=== PATIENT | female | born 1995 | race Caucasian/White ===

== ENCOUNTER → 2021-06-27 14:13 | Outpatient (BNVA) | payer OTHER, SELFPAY | PROVIDERS: Visit Provider Nurse Practitioner | DX: Z20.822 Contact with and (suspected) exposure to COVID-19 (principal) | CPT/HCPCS: 87635 ==

== ENCOUNTER 2022-10-23 08:25 | Emergency (ER) | payer MEDICAID, SELFPAY ==
[2022-10-23 08:36] VITALS: BP 152/101; PULSE 73; RESP 13; TEMP 36.7; O2SAT 100; BMI 24.2
--- NOTE | 2022-10-23 08:47 | ECG_ITS ---
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 Measurements Intervals [place] Rate: 71 P: 53 VA: 140 QRS: 33 QRSD: 100 T: 49 QT: 380 QTc: 413 Interpretive Statements SINUS RHYTHM INCOMPLETE RIGHT BUNDLE BRANCH BLOCK [90+ ms QRS DURATION, TERMINAL R IN V1/V2, 40+ ms S IN I/aVL/V4/V5/V6] No previous ECG available for comparison Electronically Signed On 10-23-2022 14:14:31 CDT by Celsa Hermosillo M.D. [id number]
--- NOTE | 2022-10-23 08:47 | XRR_ITS ---
PROCEDURE INFORMATION: Exam: XR Chest Exam date and time: 10/23/2022 9:04 AM Age: 26 years old Clinical indication: Dyspnea TECHNIQUE: Imaging protocol: Radiologic exam of the chest. Views: 1 view. COMPARISON: No relevant prior studies available. FINDINGS: Lungs: Unremarkable. No consolidation. Pleural spaces: Unremarkable. No pleural effusion. No pneumothorax. Heart/Mediastinum: Unremarkable. No cardiomegaly. Bones/joints: Unremarkable. XR/XR chest 1V portable [id number] IMPRESSION: No acute findings.
[2022-10-23 09:09] VITALS: BP 152/100; PULSE 63; RESP 16; O2SAT 99
[2022-10-23 09:12] LABS: Basophils % 0.8 %; Eosinophils # 0.1 10^3/uL (0.0-0.8); Eosinophils % 2.1 %; Hematocrit 39.6 % (37.0-47.0); Hemoglobin 12.6 g/dL (11.5-15.3); Lymphocytes # 1.7 10^3/uL (0.8-4.8); Lymphocytes % 31.2 %; Mean Corpuscular HGB Conc 31.8 g/dL (30.0-36.0); Mean Corpuscular Hemoglobin 29.4 pg (28.0-34.0); Mean Corpuscular Volume 92.3 fl (81-99); Mean Platelet Volume 10.2 fL (7.4-10.4); Monocytes # 0.5 10^3/uL (0.2-0.9); Neutrophils # 3.02 10^3/uL (1.8-7.7); Neutrophils % 56.7 %; Nucleated Red Blood Cells % 0 %; Platelet Count 217 10^3/cmm (130-400); Red Blood Count 4.29 10^6/uL (4.1-5.3); Red Cell Distribution Width 14.2 % (12.1-15.1); White Blood Count 5.3 10^3/uL (4.0-10.0)
--- NOTE | 2022-10-23 09:16 | W.ED.SOB ---
HPI - SOB/Dyspnea General: Chief Complaint: Shortness of Breath/Dyspnea Stated Complaint: SOB Time Seen by Provider: 10/23/22 08:42 History of Present Illness: HPI Narrative: Patient presents to the ER with complaints of shortness of breath chest heaviness and throat feeling tense. This all started last night. Patient is never felt this way before. Patient denies any cardiac history. Patient is 4 months . Patient denies any fevers chills coughs colds congestion. MD elicited complaint: shortness of breath Pertinent past history: other (4 months ) Onset (ago): day(s) (Last night) Timing: constant Severity: mild Exacerbating factors: nothing Relieving factors: nothing Associated symptoms: Reports chest pain (Tightness); Deny abdominal pain, extremity pain, fever(s), nausea or vomiting Treatment prior to arrival: none Review of Systems General: Reports: 10 or more systems reviewed and unremarkable except in HPI and below Const: Denies: fever(s) or chills Eyes: Denies: change in vision or photophobia ENMT: Denies: throat pain or odynophagia Card: Reports: chest pain (Tightness) Resp: Reports: dyspnea; Denies: productive cough, non-productive cough or wheezing GI: Denies: abdominal pain, nausea or vomiting : Denies: flank pain or difficulty voiding Musc: Denies: neck pain, back pain or extremity pain Skin/Breast: Denies: rash, pruritus or erythema Physical Exam Const: COMMON NORMALS: no acute distress, average body habitus, patient oriented x3, no limitations, healthy appearing and well nourished HENMT: COMMON NORMALS: normocephalic, atraumatic, hearing grossly normal bilaterally, external ears normal, Normal external nose present and moist oral mucous membranes HEAD & SCALP: normocephalic and atraumatic NOSE: Normal external nose present EXTERNAL EAR: Yes external ears normal Eye: COMMON NORMALS: Equal, round and reactive pupils present, EOMs intact bilaterally, conjunctivae normal and no scleral icterus CONJUNCTIVA: Yes conjunctivae normal PUPIL: Yes Equal, round and reactive pupils present Neck/C-Spine: COMMON NORMALS: full ROM, no lymphadenopathy, supple, no meningeal signs, no JVD and Thyroid normal THYROID: Thyroid normal Chest: COMMONS NORMALS: normal inspection of the chest and normal palpation of entire chest wall Resp: COMMON NORMALS: normal respiratory effort, No retractions, No use of accessory muscles and clear to auscultation bilaterally AUSCULTATION: clear to auscultation bilaterally Cardio: COMMON NORMALS: no JVD, regular rate, regular rhythm, S1 normal heart sound present, S2 normal heart sound present, No gallops present (Cardio), No clicks present (Cardio), No murmurs present (Cardio) and No rub (Cardio) RATE: regular rate RHYTHM: regular rhythm HEART SOUNDS: S1 normal heart sound present and S2 normal heart sound present GI: COMMON NORMALS: Normal to inspection, nondistended, normoactive bowel sounds present, Soft to palpation, non-tender, No hepatosplenomegaly present and no masses PALPATION: Yes Soft to palpation and Yes No hepatosplenomegaly present : COMMON NORMALS: Yes no CVA tenderness BLADDER/KIDNEY EXAM: Yes no CVA tenderness Back/Pelvis: COMMON NORMALS: no CVA tenderness Neuro: COMMON NORMALS: patient oriented x3 MENINGEAL SIGNS: Yes no meningeal signs Course Vital Signs: Vital signs: Vital Signs Temperature 98.1 F 10/23/22 08:36 Pulse Rate 59 L 10/23/22 10:41 Respiratory Rate 16 10/23/22 10:41 Blood Pressure 152/101 10/23/22 10:41 Pulse Oximetry 98 10/23/22 10:41 Oxygen Delivery Me thod Room Air 10/23/22 10:41 MDM - SOB/Dyspnea Medical Decision Making Patient presents with chest tightness and shortness of breath. Patient is 4 months . Lab work physical exam was obtained which revealed benign troponins negative chest x-ray and benign lab work except for UTI. Patient will be put on antibiotics discharged with UTI and atypical chest pain and told to follow-up with her PCP in approximately 1 to 2 weeks. Differential Diagnosis Unlikely acute exacerbation of chronic obstructive airways disease, congestive heart failure, community acquired pneumonia, asthma with exacerbation or pulmonary embolism Medical Records I reviewed the patient's medical records. Lab Data I reviewed the patient's lab results. 10/23/22 09:03 10/23/22 09:03 Labs/Radiology: Radiology Impressions Chest X-Ray 10/23/22 08:47 IMPRESSION: No acute findings. Laboratory Results WBC 5.3 10^3/uL (4.0-10.0) 10/23/22 09:03 RBC 4.29 10^6/uL (4.1-5.3) 10/23/22 09:03 Hgb 12.6 g/dL (11.5-15.3) 10/23/22 09:03 Hct 39.6 % (37.0-47.0) 10/23/22 09:03 MCV 92.3 fl (81-99) 10/23/22 09:03 MCH 29.4 pg (28.0-34.0) 10/23/22 09:03 MCHC 31.8 g/dL (30.0-36.0) 10/23/22 09:03 RDW 14.2 % (12.1-15.1) 10/23/22 09:03 Plt Count 217 10^3/cmm (130-400) 10/23/22 09:03 MPV 10.2 fL (7.4-10.4) 10/23/22 09:03 Neut % (Auto) 56.7 % 10/23/22 09:03 Lymph % (Auto) 31.2 % 10/23/22 09:03 [place] % (Auto) 9.0 % 10/23/22 09:03 Eos % (Auto) 2.1 % 10/23/22 09:03 Baso % (Auto) 0.8 % 10/23/22 09:03 Neut # (Auto) 3.02 10^3/uL (1.8-7.7) 10/23/22 09:03 Lymph # (Auto) 1.7 10^3/uL (0.8-4.8) 10/23/22 09:03 [place]ock # (Auto) 0.5 10^3/uL (0.2-0.9) 10/23/22 09:03 Eos # (Auto) 0.1 10^3/uL (0.0-0.8) 10/23/22 09:03 Baso # (Auto) 0.0 10^3/uL (0.0-0.1) 10/23/22 09:03 Nucleated RBC % (auto) 0 % 10/23/22 09:03 Nucleated RBCs # 0.0 /100WBC 10/23/22 09:03 D-Dimer 0.31 ug/mIFEU (0-0.59) 10/23/22 09:03 Sodium 139 mmol/L (136-145) 10/23/22 09:03 Potassium 4.1 mmol/L (3.5-5.1) 10/23/22 09:03 Chloride 103 mmol/L (98-107) 10/23/22 09:03 Carbon Dioxide 24 mmol/L (22-29) 10/23/22 09:03 Anion Gap 16.1 (5-19) 10/23/22 09:03 BUN 10 mg/dL (6-20) 10/23/22 09:03 Creatinine 0.5 mg/dL (0.5-0.9) 10/23/22 09:03 GFR Calculation 150.3 mL/min (90-130) H 10/23/22 09:03 Glucose 85 mg/dL (65-115) 10/23/22 09:03 Calculated Osmolality 286 mOsm/kg (285-295) 10/23/22 09:03 Calcium 9.2 mg/dL (8.5-10.5) 10/23/22 09:03 Total Bilirubin 0.2 mg/dL (0.15-1.2) 10/23/22 09:03 AST 17 U/L (0-32) 10/23/22 09:03 ALT 22 U/L (0-33) 10/23/22 09:03 Alkaline Phosphatase 60 U/L (35-105) 10/23/22 09:03 Troponin T Baseline 6 ng/L (0-10) 10/23/22 09:03 Troponin T 120 Minute 6.00 ng/L (0-10) 10/23/22 11:05 Delta Troponin T 0 ABS# (0-10) 10/23/22 11:05 Total Protein 7.1 g/dL (6.6-8.7) 10/23/22 09:03 Albumin 4.3 g/dL (3.5-5.2) 10/23/22 09:03 Globulin 2.8 g/dL (1.3-4.6) 10/23/22 09:03 Urine Color Yellow (Yellow) 10/23/22 10:58 Urine Appearance Sl hazy (CLEAR) A 10/23/22 10:58 Urine pH 6 (5-7) 10/23/22 10:58 Ur Specific [place] 1.015 (1.005-1.030) 10/23/22 10:58 Urine Protein Neg (Negative) 10/23/22 10:58 Urine Glucose (UA) Norm (Normal) 10/23/22 10:58 Urine Ketones Negative (Negative) 10/23/22 10:58 Urine Blood 3+ (Negative) H 10/23/22 10:58 Urine Nitrate Negative (Negative) 10/23/22 10:58 Urine Bilirubin Neg (Negative) 10/23/22 10:58 Urine Urobilinogen Norm mg/dL (Negative) 10/23/22 10:58 Ur Leukocyte Esterase Trace (Negative) H 10/23/22 10:58 Urine RBC 0-4 /hpf (0-2) H 10/23/22 10:58 Urine WBC 0-4 /hpf (0-5) H 10/23/22 10:58 Ur Squamous Epith Cells 10-15 /hpf (0-5) H 10/23/22 10:58 Amorphous Sediment 1+ /hpf 10/23/22 10:58 Urine Bacteria Trace /hpf (NONE) 10/23/22 10:58 EKG Data EKG 1: I personally reviewed and interpreted this EKG as follows: EKG Interpretation Date: 10/23/22 EKG interpretation time: 09:12 Prior EKG tracings: not available for review Interpretation: EKG showed normal sinus rhythm with incomplete right bundle branch block, ventricular rate of 71 bpm, ND interval 140, QRS duration 100, QTc 402, no ST-T wave changes EKG 2: I personally reviewed and interpreted this EKG as follows: EKG Interpretation Date: 10/23/22 EKG interpretation time: 10:50 Prior EKG tracings: available for review Interpretation: EKG showed ventricular rate of 55 bpm, ND interval of 142, QRS 94, QTc of 399, sinus bradycardia, incomplete right bundle branch block Discharge Plan Discharge Patient Disposition: Home Clinical Impression: Atypical chest pain, Shortness of breath Urinary tract infection Qualifiers: Urinary tract infection type: acute cystitis Hematuria presence: without hematuria Qualified Code(s): N30.00 - Acute cystitis without hematuria Condition: Stable Prescriptions: New Bactrim DS 800-160 mg tablet 1 tab PO BID Qty: 14 0RF Discharge Orders: Discharge ED (Routine); Ordered 10/23/22 Ordered By: Misael Barrientos Patient Instructions: Chest Pain (ED), Shortness of Breath (ED), Urinary Tract Infection - Women Activity Restrictions/Additional Instructions: Please take your medicine as directed. Follow-up with your family practice doctor in the next 1 to 2 weeks or as needed. If your chest pain worsens or shortness of breath becomes worse please follow back up in the ER. Coding Level of Care Code ED Rotary Screen Printing Machine Operator for Keyla Kohli
[2022-10-23 09:23] LABS: D Dimer 0.31 ug/mIFEU (0-0.59)
[2022-10-23 09:26] LABS: Troponin(5th) Baseline 6 ng/L (0-10)
[2022-10-23 09:32] LABS: Alanine Aminotransferase 22 U/L (0-33); Albumin Level 4.3 g/dL (3.5-5.2); Alkaline Phosphatase 60 U/L (35-105); Anion Gap 16.1 (5-19); Aspartate Amino Transferase 17 U/L (0-32); Blood Urea Nitrogen 10 mg/dL (6-20); Calcium 9.2 mg/dL (8.5-10.5); Carbon Dioxide 24 mmol/L (22-29); Chloride 103 mmol/L (98-107); Globulin 2.8 g/dL (1.3-4.6); Glomerular Filtration Rate 150.3 mL/min (90-130); Glucose 85 mg/dL (65-115); Osmolality Calculated 286 mOsm/kg (285-295); Potassium 4.1 mmol/L (3.5-5.1); Sodium 139 mmol/L (136-145); Total Bilirubin 0.2 mg/dL (0.15-1.2); Total Protein 7.1 g/dL (6.6-8.7)
[2022-10-23 10:41] VITALS: BP 152/101; PULSE 59; RESP 16; O2SAT 98
--- NOTE | 2022-10-23 10:50 | ECG_ITS ---
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 Measurements Intervals [place] Rate: 55 P: 50 [place]: 142 QRS: 30 QRSD: 94 T: 44 QT: 409 QTc: 394 Interpretive Statements SINUS BRADYCARDIA INCOMPLETE RIGHT BUNDLE BRANCH BLOCK [90+ ms QRS DURATION, TERMINAL R IN V1/V2, 40+ ms S IN I/aVL/V4/V5/V6] Compared to ECG 10/23/2022 09:12:36 Sinus rhythm no longer present Electronically Signed On 10-23-2022 14:16:28 CDT by Celsa Hermosillo M.D. [id number]
[2022-10-23 11:12] LABS: Add Urine Culture? No; Add Urine Microscopic? YES; Amorphous Sediment Urine 1+ /hpf; Bacteria Urine TRACE /hpf; Bilirubin Urine Neg (Negative); Blood Urine 3+ (Negative); Glucose Urine UA Norm (Normal); Ketones Urine Negative (Negative); Leukocyte Esterase Urine Trace (Negative); Nitrate Urine Negative (Negative); Protein Urine Neg (Negative); RBC Urine 0-4 /hpf (0-2); Specific Gravity, Urine 1.015 (1.005-1.030); Urine Appearance SL Hazy (CLEAR); Urine Color Yellow (Yellow); Urobilinogen Urine Norm (Negative); WBC Urine 0-4 /hpf (0-5); pH Urine 6 (5-7)
[2022-10-23 11:47] LABS: Troponin 5 2HR Delta 0 ABS# (0-10)
--- NOTE | 2022-10-29 10:45 | DCPLANNER ---
dairy manager called patient due to no primary care physician - declines at this time.
== END 2022-10-23 12:21 | disposition home or self-care (01) ==
PROVIDERS: Emergency Provider Emergency Medicine
DX: R07.89 Other chest pain (principal); R06.02 Shortness of breath; N30.00 Acute cystitis without hematuria
CPT/HCPCS: 71045; 80053; 81001; 84484; 85025; 85378; 93005; 99285

== ENCOUNTER 2022-12-19 13:57 | Emergency (ER) | payer MEDICAID, SELFPAY ==
--- NOTE | 2022-12-19 13:58 | XRR_ITS ---
PROCEDURE INFORMATION: Exam: XR Right Wrist Exam date and time: 12/19/2022 2:09 PM Age: 27 years old Clinical indication: Injury or trauma; Fall; Blunt trauma (contusions or hematomas); Wrist; Right; Additional info: Pain TECHNIQUE: Imaging protocol: Radiologic exam of the right wrist. Views: 3 or more views. COMPARISON: No relevant prior studies available. FINDINGS: Bones/joints: No acute bony injury or malalignment in the right wrist. Soft tissues: No radiopaque foreign body. XR/XR wrist RT min 3V* [id number] IMPRESSION: No acute bony injury or malalignment in the right wrist.
[2022-12-19 14:24] VITALS: BP 114/70; PULSE 73; RESP 14; TEMP 36.6; O2SAT 98; BMI 27.4
--- NOTE | 2022-12-19 14:35 | W.ED.EXTPRO ---
HPI - Extremity Problem General: Chief complaint: Extremity Injury, Upper Stated complaint: RT wrist inj Time Seen by Provider: 12/19/22 14:34 Source: patient Mode of arrival: ambulatory Limitations: no limitations History of Present Illness: 27-year-old female presents to the ER today for right wrist pain x24 hours. Patient reports she slipped walking up a ramp yesterday and fell and landed on an outstretched right hand. Patient reports mild swelling. She reports pain that is persisted since yesterday. She reports pain with range of motion. Denies decreased range of motion. Patient has not taken anything for the pain at this time. Denies any prior wrist injury. Patient has been wearing a wrist brace which does seem to help some. Review of Systems General: Reports: 10 or more systems reviewed and unremarkable except in HPI and below Physical Exam Const: COMMON NORMALS: no acute distress, average body habitus, patient oriented x3, no limitations, healthy appearing, alert and well nourished Resp: COMMON NORMALS: normal respiratory effort EFFORT & INSPECTION: Yes able to speak in complete sentences Cardio: COMMON NORMALS: regular rate and regular rhythm RATE: regular rate RHYTHM: regular rhythm Extremity: NARRATIVE EXTREMITY EXAM: Patient wearing wrist brace. Normal range of motion with mild tenderness with flexion and extension of the right wrist. No obvious swelling. No deformities. Neuro: COMMON NORMALS: patient oriented x3 SENSORIUM/ORIENTATION: Yes alert Psych: COMMON NORMALS: mental status grossly normal, Normal thought process present and cooperative THOUGHT PROCESS: Normal thought process present Skin: COMMON NORMALS: no rashes or lesions noted and no wounds GENERAL SKIN EXAM: no rashes or lesions noted Course ED course: Patient presents for right wrist pain after a fall. We will go ahead and get imaging at this time. No obvious deformities noted. Patient wearing wrist brace in the ER. Vital Signs: Vital signs: Vital Signs Temperature 97.8 F 12/19/22 14:24 Pulse Rate 73 12/19/22 14:24 Respiratory Rate 14 12/19/22 14:24 Blood Pressure 114/70 12/19/22 14:24 Pulse Oximetry 98 12/19/22 14:24 Oxygen Delivery Me thod Room Air 12/19/22 14:24 MDM - Extremity (Nontraumatic) Medical Decision Making X-ray of the right wrist is negative for acute fracture. Suggested patient continue to wear the lace up wrist brace. Recommended ibuprofen or Aleve x7 to 10 days. Recommended ice 20 minutes on 20 minutes off several times daily. Rest recommended. Follow-up with PCP in 2 to 3 weeks if no improvement. Return to the ER with any new or worsening symptoms. Patient verbalized understanding and was in agreement with the treatment plan. Critical Care Time Critical Care Time: Critical Care Time: No Discharge Plan Discharge Patient Disposition: Home Clinical Impression: Sprain and strain of wrist Condition: Stable Prescriptions: No Action Bactrim DS 800-160 mg tablet 1 tab PO BID Qty: 14 0RF Discharge Orders: Discharge ED (Routine); Ordered 12/19/22 Ordered By: Charleen Barrera Discharge Diet: Usual diet Discharge Activity: Increase activity as tolerated Patient Instructions: Opioid Safety, Pain Management Activity Restrictions/Additional Instructions: Wear wrist brace as discussed. Take ibuprofen x7 to 10 days. Apply ice. Rest recommended for several days. If no improvement in 2 to 3 weeks, follow-up with PCP. Return to the ER with new or worsening symptoms. Stand Alone Forms: Work/School Release Coding Level of Care Code ED Manufacturing Software Engineer for Keyla Kohli
[2022-12-19 14:39] VITALS: RESP 16
--- NOTE | 2022-12-22 09:41 | DCPLANNER ---
Addendum entered by Margaret Davis 12/22/22 09:59: Patient called dependency case manager back - declines at this time. Original Note: manager state called patient due to no primary care physician - no answer at this time.
== END 2022-12-19 14:39 | disposition home or self-care (01) ==
PROVIDERS: Emergency Provider Physician Assistant
DX: S63.501A Unspecified sprain of right wrist, initial encounter (principal); S66.911A Strain of unspecified muscle, fascia and tendon at wrist and hand level, right hand, initial encounter; W01.0XXA Fall on same level from slipping, tripping and stumbling without subsequent striking against object, initial encounter
CPT/HCPCS: 73110; 99283

== ENCOUNTER 2023-05-07 19:57 | Emergency (ER) | payer OTHER, MEDICAID, SELFPAY ==
[2023-05-07 20:16] VITALS: BP 138/84; PULSE 71; RESP 16; TEMP 36.6; O2SAT 100; BMI 26.4
--- NOTE | 2023-05-07 21:49 | XRR_ITS ---
PROCEDURE INFORMATION: Exam: XR Chest Exam date and time: 05/07/2023 9:57 PM Age: 27 years old Clinical indication: Pain; Chest pressure; Patient HX: -sob; Cough; Ex smoker; Additional info: -sob; Cough; Ex smoker TECHNIQUE: Imaging protocol: Radiologic exam of the chest. Views: 1 view. COMPARISON: CR XR chest 1V portable [id number] 10/23/2022 9:04 AM FINDINGS: Lungs: No consolidation. Pleural spaces: No large pleural effusion. No pneumothorax. Heart/Mediastinum: Unremarkable cardiomediastinal silhouette. Bones/joints: No acute abnormality. XR/XR chest 1V portable [id number] IMPRESSION: No acute findings.
--- NOTE | 2023-05-07 21:49 | W.ED.URI ---
HPI - URI/Sore Throat General: Chief Complaint: Shortness of Breath/Dyspnea Stated Complaint: sob heavy in throat Time Seen by Provider: 05/07/23 20:09 Source: patient Mode of arrival: ambulatory Limitations: no limitations History of Present Illness: Patient is a 27-year-old female presents to ED today with a complaint of intermittent shortness of breath and feeling like she has a fullness in her throat . Patient states about 2 weeks ago her child tested positive for RSV. Patient shortly after began having nasal congestion, runny nose, and a cough so she presumed she also had RSV. She was treating symptomatically with [id number] medications which did seem to help alleviate her symptoms. She states she has not taken any of these medications in several days now. She feels like her cough is not improving. She states she intermittently feels short of breath. She does still have some postnasal drainage and feels like this as well as phlegm from her chest to get caught in her throat which contribute to the fullness sensation. She also feels like when this happens she gets anxious which may contribute to her shortness of breath. She arrives with perfectly normal vital signs. She has not been running fevers. She is not having any chest pain or palpitations. MD elicited complaint: cough and other (dyspnea) Consistency: intermittent Severity: mild Description of mucous: clear Able to tolerate fluids by mouth: Yes Exacerbating factors: nothing Relieving factors: nothing Associated symptoms: Deny abdominal pain, chills, chest pain, ear or mastoid pain, fever(s), headache(s), nasal congestion, nausea, sinus pain or vomiting Review of Systems Const: Denies: fever(s), chills, body aches, fatigue or malaise Eyes: Denies: change in vision, blurry vision, photophobia, eye discomfort or eye discharge ENMT: Reports: post nasal drip; Denies: throat pain, enlarged tonsils, odynophagia, swelling of lips/tongue, oral sores, ear or mastoid pain, ear discharge, nasal discharge, nasal congestion or sinus pain Card: Denies: chest pain Resp: Reports: dyspnea, non-productive cough and chest congestion; Denies: productive cough, wheezing, stridor, pain on inspiration or hemoptysis GI: Denies: abdominal pain, nausea or vomiting Neuro: Denies: headache(s) All/Imm: Denies: facial swelling or seasonal rhinorrhea Physical Exam Const: COMMON NORMALS: no acute distress, average body habitus, patient oriented x3, no limitations, healthy appearing, alert and well nourished HENMT: COMMON NORMALS: Normal external nose present FACE & SINUS: normal facial exam and sinuses nontender NOSE: Normal external nose present MOUTH: Normal oral and palatal mucosa present and lip normal THROAT: posterior oropharynx normal and tonsils normal Neck/C-Spine: COMMON NORMALS: no lymphadenopathy GENERAL: Yes normal visual inspection, No anterior neck swelling and No submandibular swelling Chest: COMMONS NORMALS: normal inspection of the chest Resp: COMMON NORMALS: normal respiratory effort and clear to auscultation bilaterally AUSCULTATION: clear to auscultation bilaterally Cardio: COMMON NORMALS: regular rate and regular rhythm RATE: regular rate RHYTHM: regular rhythm Neuro: COMMON NORMALS: patient oriented x3 SENSORIUM/ORIENTATION: Yes alert Course Vital Signs: Vital signs: Vital Signs Temperature 97.9 F 05/07/23 20:16 Pulse Rate 71 05/07/23 20:16 Respiratory Rate 16 05/07/23 20:16 Blood Pressure 138/84 05/07/23 20:16 Pulse Oximetry 100 05/07/23 20:16 Oxygen Delivery Me thod Room Air 05/07/23 20:16 MDM - URI/Sore Throat Medical Decision Making Patient appears in no acute distress. Her vital signs are stable. CXR is normal. Patient stable for discharge from an ED standpoint. Discussed that she can continue using [id number] therapies/decongestants as needed she did get relief from these when she was taking them previously. Discussed other homeopathic remedies for drainage/congestion including lemon/honey/elderberry syrup. Return to ED precautions given. Differential Diagnosis Likely upper respiratory infection, viral infection and bronchitis Medical Records I reviewed the patient's medical records. XR interpretation done by ED provider, pending radiology final review Discharge Plan Discharge Patient Disposition: Home Clinical Impression: Upper respiratory infection Qualifiers: URI type: unspecified viral URI Qualified Code(s): J06.9 - Acute upper respiratory infection, unspecified Condition: Stable Prescriptions: No Action Bactrim DS 800-160 mg tablet 1 tab PO BID Qty: 14 0RF Discharge Orders: Discharge ED (Routine); Ordered 05/07/23 Ordered By: Jessica Roman Patient Instructions: RSV (Respiratory Syncytial Virus) Infection (ED), Upper Respiratory Infection - Adult Coding Level of Care Code ED Bias Binding Cutter for Keyla Kohli
[2023-05-07 22:38] VITALS: RESP 16; O2SAT 100
== END 2023-05-07 22:39 | disposition home or self-care (01) ==
PROVIDERS: Emergency Provider Physician Assistant
DX: J06.9 Acute upper respiratory infection, unspecified (principal)
CPT/HCPCS: 71045; 99283

== ENCOUNTER → 2024-05-08 09:15 | Outpatient (BNVA) | payer OTHER, MEDICAID, SELFPAY | PROVIDERS: Visit Provider Obstetrics & Gynecology | DX: N93.9 Abnormal uterine and vaginal bleeding, unspecified (principal) | CPT/HCPCS: 80053; 84443; 84702; 85025; 87624 ==

== ENCOUNTER → 2024-05-15 09:24 | Outpatient (BNVA) | payer OTHER, MEDICAID, SELFPAY | PROVIDERS: Visit Provider Obstetrics & Gynecology | DX: N92.6 Irregular menstruation, unspecified (principal) | CPT/HCPCS: 76830 ==

== ENCOUNTER 2024-11-27 17:11 | Emergency (ER) | payer MEDICAID, SELFPAY ==
[2024-11-27 17:13] VITALS: BP 112/72; PULSE 79; RESP 16; TEMP 36.5; O2SAT 100
--- OUTSIDE RECORDS SUMMARY | 2024-11-27 17:16 | XMS_ITS | Patient Health Record ---
Author Organization [facility] Address [address] [place] [address] Care Team Providers Care Compliance Technician Name Role Phone Jordan Evan Primary Care Provider Allergies No Known Allergies Reason For Referral No Information Social History Sex Assigned At : Social History Observation Description Sex Assigned At Female Plan Of Treatment No Information Insurance Providers Payer Name Payer Address Payer Phone Subscriber Number Group Number Insured Name Patient Relationship to Insured Coverage Start Date Coverage End Date [facility] [address] [place] [phone] [id number] Linda Gavin Self - patient is the insured [employer] [address] [address] [place] [phone] [id number] Linda Gavin Self - patient is the insured
--- OUTSIDE RECORDS SUMMARY | 2024-11-27 17:16 | XMS_ITS | Data Portability ---
Author Organization [facility] Demetrius Cox [facility] Olena Machado [facility] Address [address] [address] Assessment No assessment recorded. Plan of Treatment Reminders Order Date Submit Date Provider Last Modified By Organization Details Last Modified Time Details Appointments None recorded. Lab None recorded. Referral None recorded. Procedures None recorded. Surgeries None recorded. Imaging None recorded. Medication Orders mupirocin 2 % topical ointment 2024 025 [facility], [address], [address], 5 15:49:25 Augmentin ES-600 600 mg-42.9 mg/5 mL oral suspension [address] [facility], [address], [address], 5 15:29:10 Flonase Allergy Relief 50 mcg/actuati on nasal spray,suspe nsion [address] [facility], [address], [place], [address], 5 15:29:39 Patient TargetsNo targets recorded. Patient InstructionsNo instructions recorded. Reason for Referral None Reported. Medical Equipment None Reported. Allergies No known drug allergies Medications Name Sig Start Date Stop Date Status Note LastModified by Organization Details LastModified Time Paxil 20 mg tablet Take 1 tablet every day by oral route. 09/08 completed Not Available Not Available Not Available sulfamethox azole 800 mg-trimetho prim 160 mg tablet TAKE 1 TABLET BY MOUTH TWICE DAILY 07/31 completed Not Available Not Available Not Available hydroxyzine HCl 10 mg/5 mL oral solution TAKE 5-10 ML BY MOUTH EVERY 4-6 HRS WHILE AWAKE NEEDED FOR ANXIETY active Not Available Not Available No t Available Augmentin ES-600 600 mg-42.9 mg/5 mL oral suspension Take 5 mL twice a day by oral route for 7 days. 09/08 completed Not Available Not Available Not Available mupirocin 2 % topical ointment APPLY A SMALL AMOUNT TO THE AFFECTED AREA BY TOPICAL ROUTE 3 TIMES PER DAY x 7 days 2024 active Not Available Not Available Not Avai lable medroxyprog esterone 150 mg/mL intramuscul ar syringe INJECT 150 MG INTRAMUSC ULARLY EVERY 90 DAYS 09/08 completed Not Available Not Available Not Available Sprintec (28) 0.25 mg-0.035 mg tablet TAKE 2 TABLETS BY MOUTH TWICE DAILY 07/31 completed Not Available Not Available Not Available Paxil active Not Available Not Availa ble Not Available Flonase Allergy Relief 50 mcg/actuati on nasal spray,suspe nsion [place] 1 spray every day by intranasa l route for 30 days. 09/08 completed Not Available Not Available Not Available Vitals Date Recorded Body height Body mass index (BMI) Body weight Oxygen saturation Oxygen saturation in Arterial blood by Pulse oximetry Heart rate Respiratory rate Body temperature Systolic blood pressure Diastolic blood pressure Provider Name and Address Organization Details Last Updated DateTime 4 149.86 cm 24.6 kg/m2 07765.5 5 g 99 % 99 % 56 /min 15 /min 97.1 [degF] 114 mm[Hg] 72 mm[Hg] Beatriz Lawson [facility] 4 13:47:12 Date Recorded Body weight Body mass index (BMI) Body height Body temperature Heart rate Oxygen saturation Oxygen saturation in Arterial blood by Pulse oximetry Systolic blood pressure Diastolic blood pressure Provider Name and Address Organization Details Last Updated DateTime 5 93271.3 8 g 27.1 kg/m2 149.86 cm 98.3 [degF] 77 /min 98 % 98 % 122 mm[Hg] 64 mm[Hg] Monique Miguel [facility] 15:34:09 Social History None recorded. Functional Status None recorded. Mental Status None recorded. Family History Nothing Reported. Medical History No medical history recorded. Gynecological HistoryNo gynecological history recorded. Obstetrics History GPAL:G 0 P 0 0 0 0 Immunizations Vaccine Type Date Status Note Provider Nam e and Address Organization Details Recorded Time Hep B, unspecified formulation 7 completed Not Available [facility] 09/08/2024 15:26:26 Hep B, unspecified formulation 7 completed Not Available [facility] 09/08/2024 15:26:26 DTP 7 completed Not Available [facility] 09/08/2024 15:26:26 OPV 7 completed Not Available [facility] 09/08/2024 15:26:26 Hib (HbOC) 7 completed Not Available [facility] 09/08/2024 15:26:26 DTP 7 completed Not Available [facility] 09/08/2024 15:26:26 OPV 7 completed Not Available [facility] 09/08/2024 15:26:26 Hib (HbOC) 7 completed Not Available [facility] 09/08/2024 15:26:26 DTaP 7 completed Not Available [facility] 09/08/2024 15:26:26 Hib (PRP-T) 7 completed Not Available [facility] 09/08/2024 15:26:26 Hep B, unspecified formulation 7 completed Not Available [facility] 09/08/2024 15:26:26 DTaP 8 completed Not Available [facility] 09/08/2024 15:26:26 Hib (PRP-T) 8 completed Not Available [facility] 09/08/2024 15:26:26 OPV 8 completed Not Available [facility] 09/08/2024 15:26:26 MMR 8 completed Not Available [facility] 09/08/2024 15:26:26 varicella 9 completed Not Available [facility] 09/08/2024 15:26:26 DTaP 1 completed Not Available [facility] 09/08/2024 15:26:26 IPV 1 completed Not Available [facility] 09/08/2024 15:26:26 pneumococcal conjugate PCV 7 1 completed Not Available [facility] 09/08/2024 15:26:26 MMR 1 completed Not Available [facility] 09/08/2024 15:26:26 Hep A-Hep B 6 completed Not Available [facility] 09/08/2024 15:26:26 Tdap 6 completed Not Available [facility] 09/08/2024 15:26:26 Tdap 2 completed Not Available [facility] 09/08/2024 15:26:26 Influenza, split virus, quadrivalent, PF 3 completed Not Available [facility] 09/08/2024 15:26:26 Past Encounters Encounter ID Performer Location Encounter Start Date Encounter Closed Date Diagnosis/Indication Diagnosis SNOMED-CT Code Diagnosis ICD10 Code Diagnosis Note [id number] ARIS CASTRO [facility] ([facility]) [address] [place] [address] 08/01/2023 13:34:03 08/01/2023 15:45:55 Acute maxillary sinusitis 19648553 J01.00 Discussed use of flonase, antibiotic , and otc decongesta nt. Push oral fluids.If you develop worsening symptoms after antibiotic completion then return. [id number] ARIS ORELLANA [facility] ([facility]) [address] [place] [address] 09/08/2024 15:25:42 09/08/2024 15:49:43 Contact dermatitis 10161427 L25.9 May use hydrocorti sone cream to affected areas bid - where tape was previously placed. RTC with any new or worsening symptoms. Superficia l folliculitis 689346963 L73.9 Health Concerns Section Related Observation LastModified by Organization Detai ls LastModified Time None Recorded Concern Status LastModified by Organization Details LastModified Time None Recorded Advance Directives Directive None Recorded Payers Insurance Date Sequence Insurance Name Policy Number Policy Ramos Covered Member ID Ramos Member ID Guarantor Name 08/01/2023 1 *SELF PAY* Dieudonne Gavin Notes Date Note Type Note Provider Name and Address Organization Details Recorded Time 08/01/2023 text/html Ear Pain Brief HPIReported bypatient.Location :bilateral Onset/Timing:new onset; started 3days ago; constant pain; sudden onset Duration:constant pain Quality:no itching; no discharge from the ears; no burning;sharp pain;deep pain Severity:getting worse; no fever; mild pain; moderate pain;interferes with daily activities;interfe res with ability to sleep Associated Symptoms:no discharge from ear; no nasal congestion; no nasal discharge;decrease d hearing;muffled hearing ELODIA BOUDREAUX, [address], [address], [facility], LGerardo 08/01/2023 15:39:22 09/08/2024 [facility] on [facility] left side of abdomen, been there for 3 days. States that is looked like pimples at first and then popped when showering yesterday. Has had some yellow-pus like drainage. Patient covered this and another area noted on the right abd with telfa and tape, which has left distint red raised areas where tape was placed. GORDO ROMANO [address], [address], [facility], LGarrisonLTonya 09/08/2024 15:49:42 OBGyn Episode No OBEpisode recorded.
--- OUTSIDE RECORDS SUMMARY | 2024-11-27 17:16 | XMS_ITS | Clinical Summary ---
Author Organization [facility] Address [address] Edwardsn: [place] [address] Care Team Providers Care Engine Emission Technician Name Role Phone Radha Humphrey MD Primary Care Provider [phone] Allergies No known active allergies Medications hydrOXYzine HCL (ATARAX) 10 mg/5 mL solution Take 10 mg by mouth every 6 hours as needed for Itching. 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 Encounters Date Type Department Care Team Description 10/23/2024 External Device Data [facility] ABSTRACTION Provider, Abstract 10/18/2024 External Device Data [facility]STRACTION Provider, Abstract 10/18/2024 External Device Data [facility]STRACTION Provider, Abstract 10/02/2024 External Device Data [facility]STRACTION Provider, Abstract 09/25/2024 External Device Data [facility] ABSTRACTION Provider, Abstract 09/25/2024 [facility] [address] [address] Monty Sunshine MD Referral (From Dr Humphrey for history of abnormal pap need for yearly with pap) 09/25/2024 External Device Data [facility] ABSTRACTION Provider, Abstract 09/25/2024 External Device Data [facility] ABSTRACTION Provider, Abstract 09/24/[address] [address] Radha Humphrey MD Results 09/18/2024 2:20 PM CDT Office Visit [address] [phone] Radha Humphrey MD Abnormal cervical Papanicolaou smear, unspecified abnormal pap finding (Primary Dx); Generalized anxiety disorder; Declined influenza vaccine from Last 3 Months Immunizations Immunization Administration Dates Next Due (M-M-R II/PRIORIX)(12 MO UP) MEASLES, MUMPS AND RUBELLA VIRUS VACCINE, 0.5 ML IM/SUBCUT 02/22/2001,01/29/1998 (VARIVAX)(12 MOS UP)VARICELL A VIRUS VACCINE (PF) 0.5 ML, SUB CUT 02/03/1999 Dt Dtp Dtap Vaccine 02/15/2001, 8,05/13/1997,1996,01/16/1997 HIB, Unspecified Formulation 01/29/1998, 05/13/1997,03/18/1997,1996 Hepatitis B Vaccine 05/13/1997,1996,1996 IPV/OPV 02/15/2001, 8,03/18/1997,1996 Pneumococcal 7-valent conjug ate vaccine IM 02/22/2001 Family History Medical History Relation Name Comments Healthy Father Healthy Maternal Grandfather Cancer Maternal Grandmother lung ca ncer Depression Mother Other Mother spinal stenosis , fibromyalgia, DJD Spont Ab Mother Diabetes Paternal Grandmother Healthy Sister Relation Name Status Comments Father Alive Maternal Grandfather Alive Maternal Grandmother Mother Alive Paternal Grandfather Paternal Grandmother Alive Sister Alive Social History Tobacco Use Types Packs/Day Years Used Date Smoking Tobacco: Former Cigarettes Smokeless Tobacco: Never Tobacco Cessation:Counseling Given: Not Answered Alcohol Use Standard Drinks/Week Comments Not Currently 0 (1 standard drink = 0.6 oz pur e alcohol) occasionally Feeling Safe Answer Date Recorded Are you in a relationship wi th someone who hurts you emotionally and/or physically? 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 Gender Identity Not on file Sexual Orientation Not on file Last Filed Vital Signs Vital Sign Reading Time Taken Comments Blood Pressure 116/72 09/18/2024 2:11 PM CDT Pulse 77 09/18/2024 2:11 PM CDT Temperature 37.1 C (98.7 F) 09/18/2024 2:11 PM CDT Respiratory Rate 18 09/18/2024 2:11 PM CDT Oxygen Saturation 99% 09/18/2024 2:11 PM CDT Inhaled Oxygen Concentration - - Weight 60.9 kg (134 lb 3.2 oz) 09/18/2024 2:11 P M CDT Height 149.9 cm (4' 11 ) 09/18/2024 2:11 PM CDT Body Mass Index 27.11 09/18/2024 2:11 PM CDT Plan of Treatment Upcoming Encounters Date Type Department Care Team (Late st Contact Info) Description 09/19/2025 3:00 PM CDT Office Visit [address] [address] Radha Humphrey MD [address] [place] [phone] Health Maintenance Due Date Last Done Comments Preventative Visit-Managed Medicaid 11/11/2015 CERVICAL CANCER SCREENING 2017 HPV/Cotest (21-29) 2017 PAP SMEAR 2017 DTAP/TDAP/TD VACCINES (8 - Td or Tdap) 04/07/2032 04/07/2022, 02/11/2016, 02/15/2001, Additional history exists HEPATITIS B VACCINES Completed 02/11/2016, 05/13/1997, 05/13/1997, Additional history exists CHLAMYDIA SCREENING (ANNUAL) 11-24 YEARS Discontinued 01/03/2018 INFLUENZA VACCINE Completed 09/18/2024, 06/14/2022 HPV VACCINES Aged Out No longer eligi ble based on patient's age to complete this topic Procedures Procedure Name Priority Date/Time Associated Diagnosis Comments GC/CHLAMYDIA, URINE Routine 01/03/2018 3 :26 PM CDT from Last 3 Months or Most Recently Relevant to Health Maintenance Results * GC/CHLAMYDIA, URINE (01/03/2018 3:26 PM CDT) CHLAMYDIA DNA AMPLIFICATION NOT DETECTED Not Detected 01/03/2018 11:07 PM CDT [facility] GC DNA AMPLIFICATION NOT DETECTED Not Detected 01/03/2018 11:07 PM CDT [facility] Urine URINE SPECIMEN / Unknown Collection / Unknown 01/03/2018 3:26 PM CDT 01/03/2018 8:43 PM CDT Narrative [facility] - 01/03/2018 11:07 PM CDT Results should not be used for the evaluation of suspected sexual abuse or for other medico-legal indications. The only legally accepted results are from culture. Results cannot be used to assess therapeutic success or failure since nucleic acids may persist following antimicrobial therapy. Leticia Cheng ADDICTION NURSE URINE ORDERABLES COM Final R esult [facility] CLIA# [id number] [address] [place] [address] [facility] CLIA# [id number] [address] [place] [id number] from Last 3 Months or Most Recently Relevant to Health Maintenance Insurance [place]ICAID [place] Care Teams Engine Emission Technician Relationship Specialty Start Date End Date Radha Humphrey MD [address] [place] [phone] PCP - General Family Practice 09/18/24
--- NOTE | 2024-11-27 18:03 | ED_ITS ---
HPI - Female Genitourinary 2 General: Chief complaint: Vaginal Bleeding Stated complaint: spotting ((7wks preg) Time Seen by Provider: 11/27/24 17:31 History of Present Illness: 29-year-old female , last menstru al period thought to be 10/05/2024, patient has irregularity and is unsure, presents to ED with spotting. This started with wiping only. No cramping. No dysuria. No flank pain. Last intercourse was last p.m. She has not utilize any tampons. No fevers. No history of miscarriages. Has not yet followed up with OB. diagnosed by [facility] 11/19/2024 by urine test. Associated symptoms: Reports vaginal discharge; Deny abdominal pain, headache(s) or nausea Related Data Previous Rx's ?Medication ?Instructions ?Recorded norethindrone 1 mg-ethinyl 1 tab PO DAILY #84 tabs 03/22 estradiol 35 mcg tablet ferrous sulfate 325 mg (65 mg 325 mg PO DAILY #90 tabs 05/09/24 iron) tablet Allergies Allergy/AdvReac Type Severity Reaction Status Date / Time No Known Drug Allergies Allergy Unknown Verified 08/29/24 09:50 Review of Systems 2 General: Reports: 10 or more systems reviewed and unremarkable except in HPI and below Const: Denies: fever(s) or chills ENMT: Denies: throat pain or mouth pain Card: Denies: chest pain or palpitations Resp: Denies: dyspnea or productive cough GI: Denies: abdominal pain, nausea, vomiting or GI cramping : Reports: vaginal bleeding (on toilet paper) and vaginal discharge Musc: Denies: neck pain Skin/Breast: Denies: rash or pruritus Neuro: Denies: headache(s) or numbness in extremities Psych: Denies: anxiety or depression PFSH ED 2 PFSH: Social History Smoking and tobacco/nicotine status: former use of tobacco/nicotine Physical Exam 2 Const: COMMON NORMALS: no acute distress, average body habitus and patient oriented x3 EXAM LIMITATIONS: no altered mental status GENERAL APPEARANCE: cooperative ORIENTATION/CONSCIOUSNESS: Yes awake, Yes oriented to person and Yes oriented to place HENMT: COMMON NORMALS: normocephalic and atraumatic HEAD & SCALP: n ormocephalic and atraumatic Neck/C-Spine: COMMON NORMALS: full ROM and no lymphadenopathy Lymph: LYMPHATIC: no lymphadenopathy noted Chest: COMMONS NORMALS: normal inspection of the chest and normal palpation of entire chest wall Resp: COMMON NORMALS: normal respiratory effort and No retractions Cardio: COMMON NORMALS: regular rate and regular rhythm RATE: regular rate RHYTHM: regular rhythm GI: COMMON NORMALS: Normal to inspection, nondistended, normoactive bowel sounds present and Soft to palpation PALPATION: Yes Soft to palpation : COMMON NORMALS: Yes no CVA tenderness BLADDER/KIDNEY EXAM: Yes no CVA tenderness Back/Pelvis: COMMON NORMALS: no CVA tenderness Extremity: COMMON NORMALS: normal to inspection and full ROM Neuro: COMMON NORMALS: patient oriented x3 SENSORIUM/ORIENTATION: Yes oriented to person and Yes oriented to place Psych: COMMON NORMALS: mental status grossly normal and Normal thought process present THOUGHT PROCESS: Normal thought process present Skin: COMMON NORMALS: no rashes or lesions noted and no wounds GENERAL SKIN EXAM: no rashes or lesions noted Course 2 Reevaluation(s): Reevaluation #1: Now passing clots. Will order US Vital Signs: Vital signs: Vital Signs Temperature 97.7 F 11/27/24 17:13 Pulse Rate 79 11/27/24 17:13 Respiratory Rate 16 11/27/24 17:13 Blood Pressure 117/77 11/27/24 18:21 Pulse Oximetry 95 11/27/24 18:21 Oxygen Delivery Me thod Room Air 11/27/24 17:13 MDM - Female Medical Decision Making Patient is a 29-year-old female with diagnosed at [facility] on 11/19, with wiping blood. She is not have any cramping. Last intercourse was last p.m. Will check routine labs. Patient plans on following up with Dr. Lory Sims. Patient noted increased clotting when went to the bathroom. Ultrasonography ordered. hCG confirmed. demise noted on ultrasound. Patient will follow-up on hCG level. Still no pain/cramping. Educated patient. Lab Data 11/27/24 18:40 Radiology Impressions Ultrasound 11/27/24 19:13 IMPRESSION: heart rate not detected given a crown to rump length of 7.7 mm is diagnostic of early loss. Small amount of free fluid in the pelvis. Laboratory Results WBC 5.34 10^3/uL (3.29-11.43) 11/27/24 18:40 RBC 4.03 10^6/uL (3.85-5.65) 11/27/24 18:40 Hgb 12.80 g/dL (11.27-16.99) 11/27/24 18:40 Hct 39.1 % (36-47) 11/27/24 18:40 MCV 97.0 fl (85-98) 11/27/24 18:40 MCH 31.8 pg (27-33) 11/27/24 18:40 MCHC 32.7 g/dL (30-55) 11/27/24 18:40 RDW 12.0 % (12.1-15.1) L 11/27/24 18:40 Plt Count 245 10^3/cmm (157-399) 11/27/24 18:40 MPV 9.9 fL (7.4-10.4) 11/27/24 18:40 Neut % (Auto) 64.2 % 11/27/24 18:40 Lymph % (Auto) 23.4 % 11/27/24 18:40 Jewell % (Auto) 10.1 % 11/27/24 18:40 Eos % (Auto) 1.5 % 11/27/24 18:40 Baso % (Auto) 0.6 % 11/27/24 18:40 Neut # (Auto) 3.43 10^3/uL (1.8-7.7) 11/27/24 18:40 Lymph # (Auto) 1.3 10^3/uL (0.8-4.8) 11/27/24 18:40 Jewell # (Auto) 0.5 10^3/uL (0.2-0.9) 11/27/24 18:40 Eos # (Auto) 0.1 10^3/uL (0.0-0.8) 11/27/24 18:40 Baso # (Auto) 0.0 10^3/uL (0.0-0.1) 11/27/24 18:40 Nucleated RBC % (auto) 0 % 11/27/24 18:40 Nucleated RBCs # 0.0 /100WBC 11/27/24 18:40 Ser , Semi-Qnt 2758.00 mIU/mL 11/27/24 18:40 Urine Color Yellow (Yellow) 11/27/24 20:22 Urine Appearance Clear (CLEAR) 11/27/24 20:22 Urine pH 5.5 (5-7) 11/27/24 20:22 Ur Specific [place] 1.018 (1.005-1.030) 11/27/24 20:22 Urine Protein Negative (Negative) 11/27/24 20:22 Urine Glucose (UA) Negative (Normal) 11/27/24 20:22 Urine Ketones Negative (Negative) 11/27/24 20:22 Urine Blood 3+ (Negative) A 11/27/24 20:22 Urine Nitrate Negative (Negative) 11/27/24 20: Urine Bilirubin Negative (Negative) 11/27/24 20:22 Urine Urobilinogen 0.2 mg/dL (Negative) 11/27/24 20:22 Ur Leukocyte Esterase Negative (Negative) 11/27/24 20:22 Urine RBC 6-10 /hpf (0-2) 11/27/24 20:22 Urine WBC 0-5 /hpf (0-5) 11/27/24 20:22 Ur Squamous Epith Cells 0-5 /hpf (0-5) 11/27/24 20:22 Amorphous Sediment Not Reportable 11/27/24 20:22 Urine Bacteria None seen /hpf (NONE) 11/27/24 20:22 Hyaline Casts 0.40 /lpf 11/27/24 20:22 Blood Type O Positive 11/27/24 18:40 Rho(D) Type Rh positive 11/27/24 18:40 Antibody Screen Negative 11/27/24 18:40 All radiology interpretation(s) finalized by discharge ED provider radiology interpretation(s): demis 6w5d Discharge Plan Discharge Patient Disposition: Home Clinical Impression: Incomplete Condition: Stable Prescriptions: No Action norethindrone-ethin estradiol 1-35 mg-mcg tablet 1 tab PO DAILY Qty: 84 0RF ferrous sulfate 325 mg (65 mg iron) tablet 325 mg PO DAILY Qty: 90 1RF Discharge Orders: Discharge ED (Routine); Ordered 11/27/24 Ordered By: Ellen Beyer Referrals: Delfino Juarez MD [Primary Care Provider, Family Practice] Discharge Diet: Usual diet Discharge Activity: Resume usual activity Patient Instructions: Miscarriage (ED), Patient Portal & Clotilde Instructions Activity Restrictions/Additional Instructions: Pelvic rest (no sex, no tampons, nothing in vagina) Call tomorrow to make an appointment for follow up with HCG level in your blood. Case management will check with you regarding appt Return to ED for worsening bleeding, or if severe cramping occurs. 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
[2024-11-27 18:21] VITALS: BP 117/77; O2SAT 95
[2024-11-27 19:07] LABS: Hematocrit 39.1 % (36-47); Hemoglobin 12.80 g/dL (11.27-16.99); Mean Corpuscular HGB Conc 32.7 g/dL (30-55); Mean Corpuscular Hemoglobin 31.8 pg (27-33); Mean Corpuscular Volume 97.0 fl (85-98); Nucleated Red Blood Cells % 0 %; Platelet Count 245 10^3/cmm (157-399); Red Blood Count 4.03 10^6/uL (3.85-5.65); White Blood Count 5.34 10^3/uL (3.29-11.43)
--- NOTE | 2024-11-27 19:13 | USR_ITS ---
PROCEDURE INFORMATION: Exam: US First Trimester, Transabdominal and US , Transvaginal Exam date and time: 11/27/2024 8:04 PM Age: 29 years old Clinical indication: Lmp or gestational age (in weeks): 6w 5d by reported lmp; Antepartum complications; Bleeding; ; G3-p2-a0-l2 presenting with spotting, passing clots; Additional info: , now passing clots LABS AND CLINICAL REPORTS: Choriogonadotropin in serum (Serum HCG): 2758 mIU/mL Last menstrual period start date: 10/05/2024 Gestational age (Established): 7 w 4 d Estimated due date (Established): 07/12/2025 TECHNIQUE: Imaging protocol: Real-time transabdominal obstetrical ultrasound of the maternal pelvis and a first trimester , less than 14 weeks 0 days, with image documentation. Transvaginal imaging was used for better evaluation of the fetus, adnexa, and/or cervix. COMPARISON: US transvaginal [id number] 05/15/2024 9:32 AM FINDINGS: GESTATION: Gestation: Intrauterine gestation is visualized. pole is visualized. Yolk sac is visualized. There is a single intrauterine gestation identified. pole measuring 7.7 mm. Irregular shape of the yolk sac. Embryo/ cardiac activity (BPM): 0 bpm. heart rate is not detected. Extra-embryonic membranes/Placenta: Not evaluated at this time. Amniotic/Chorionic fluid: Not evaluated at this time. BIOMETRY: Gestational age (AUA): 6 w 5 d Estimated due date (AUA): 07/18/2025 Booker rump length (CRL): 7.7 mm. EGA (CRL) is 6 w 5 d MATERNAL: Uterus: Uterus measures 8.18 cm x 4.63 cm x 3.11 cm. The uterus is retroflexed and measures 8.2 x 4.6 x 3.1 cm. Cervix: Unremarkable. Endocervical canal is closed. Right ovary/adnexa: Right ovary measures 2.8 cm x 1.1 cm x 2.3 cm. Right ovarian volume is 3.6 mL. The right maternal ovary is normal. Preserved flow to the right ovary. Left ovary/adnexa: Left ovary measures 4 cm x 1.9 cm x 3.7 cm. Left ovarian volume is 14.5 mL. The left maternal ovary is normal. Preserved flow to the left ovary. Intraperitoneal space: There is a small amount of free fluid seen adjacent to the right uterus and is simple in echogenicity. US/US OB <= 14 weeks fetus [id number] IMPRESSION: heart rate not detected given a crown to rump length of 7.7 mm is diagnostic of early loss. Small amount of free fluid in the pelvis.
[2024-11-27 20:31] LABS: Glucose Urine UA Negative (Normal); Nitrate Urine Negative (Negative); Specific Gravity, Urine 1.018 (1.005-1.030)
[2024-11-27 20:36] LABS: Add Urine Microscopic? YES
--- NOTE | 2024-11-28 09:09 | DCPLANNER ---
Message sent to OBGYN to have follow up-Patient is a 29-year-old female with diagnosed at [facility] on 11/19, with wiping blood. She is not have any cramping. Last intercourse was last p.m. Will check routine labs. Patient plans on following up with Dr. Lory Sims. Patient noted increased clotting when went to the bathroom. Ultrasonography ordered. hCG confirmed. demise noted on ultrasound. Patient will follow-up on hCG level. Still no pain/cramping. Educated patient.
== END 2024-11-27 20:45 | disposition home or self-care (01) ==
PROVIDERS: Emergency Medicine; Emergency Provider Physician Assistant; PCP Family Medicine
DX: O03.4 Incomplete spontaneous abortion without complication (principal); Z3A.01 Less than 8 weeks gestation of pregnancy; Z87.891 Personal history of nicotine dependence
CPT/HCPCS: 36415; 76801; 81001; 84702; 85025; 86850; 86900; 99284